=== PATIENT | female | born 1945 | race Caucasian/White ===

== ENCOUNTER → 2016-11-08 | Outpatient (CLI) | payer MEDICARE ==
--- NOTE | 2016-11-08 16:38 | RADIOLOGY REPORT PS360 ---
US THYROID HISTORY: ACQUIRED HYPOTHYROIDISM, ORDERING PHYSICIAN: Brendan Danielle MD PATIENT AGE: 71 years COMPARISON: None FINDINGS: The right lobe is 4.1 x 1.3 x 1.3 cm. No discrete nodules evident. There is homogeneous echogenicity. The left lobe is 3.5 x 0.7 x 1.4 cm with no obvious nodule and homogeneous echogenicity The isthmus is thickened at 6 mm. IMPRESSION: 1. Thickened isthmus of the thyroid otherwise negative. 2. No nodules identified
--- NOTE | 2016-11-12 10:04 | RADIOLOGY REPORT PS360 ---
DIG MAMM-DX UNI A/VWS-LT W/CAD, US BREAST-LT COMPLETE W/AXILLA COMPARISON: 10/31 and 09/15/2006 INDICATION: Follow-up abnormal mammogram ORDERING PHYSICIAN: Brendan Danielle MD PATIENT AGE: 71 years TECHNIQUE: Standard images are performed along with spot compression views and left breast ultrasound FINDINGS: Nodular opacity is once again noted involving the medial and inferior aspect of the left breast at 5 mm. This does not appear significantly changed. In addition, there is an asymmetric density in the deep and medial aspect of the left breast at nearly 8 mm. Left breast ultrasound: Hypoechoic 8 x 4 mm area 2:00 and may represent a small cyst with some enhanced through transmission of sound. There is a 6 mm hypoechoic area at 9:00 mid aspect may be due to small cyst. This has a probably benign appearance and may correspond to the deeper nodule noted on the mammogram.. A septated cyst is once again noted at 9:00 at 6 mm corresponding to the more anterior mammographic abnormality. Small nodes present in the axilla. IMPRESSION: Probably benign findings. There is a new nodular density deeper in the medial aspect of the right breast which is hypoechoic on ultrasound probably benign and a new probable complex cyst in the 2:00 region of the left breast. BI-RADS CATEGORY: 3_Probably Benign-Short Term F/U RECOMMENDED FOLLOWUP: Bilateral mammogram and left breast ultrasound follow-up is suggested in February 2017 (A letter has been sent to the patient regarding results of the study.)
== END ==
LOC: RAD 13:10
DX: R92.8 Other abnormal and inconclusive findings on diagnostic imaging of breast (principal); E03.9 Hypothyroidism, unspecified; R13.13 Dysphagia, pharyngeal phase
CPT/HCPCS: G0206-LT

== ENCOUNTER → 2017-03-01 | Outpatient (CLI) | payer MEDICARE ==
--- NOTE | 2017-03-03 19:31 | RADIOLOGY REPORT PS360 ---
US BREAST-LT COMPLETE W/AXILLA COMPARISON: 11/08/2016 INDICATION: Follow-up abnormal ultrasound ORDERING PHYSICIAN: Brendan Danielle MD PATIENT AGE: 72 years TECHNIQUE: Standard images FINDINGS: Complex 7 mm cyst at 2:00 unchanged, complex 5 mm cyst at 9:00 unchanged, 4 mm hypoechoic nodule at 9:00 near the nipple and may be due to small cyst. No suspicious nodules evident. IMPRESSION: No evidence of malignancy BI-RADS CATEGORY: 2_Benign RECOMMENDED FOLLOWUP: Routine screening mammogram (A letter has been sent to the patient regarding results of the study.)
--- NOTE | 2017-03-03 23:18 | RADIOLOGY REPORT PS360 ---
DIG MAMM-SCREEN ADA W/CAD CAD Screening ORDERING PHYSICIAN : Brendan Danielle MD PATIENT AGE: 72 years GENDER: Female COMPARISON: Previous mammograms: August 2006 and February 2016 INDICATION: Routine screening no hormones. No new complaints. Previous biopsy excisional biopsy left breast upper-outer quadrant periareolar region. Family history. Paternal aunt with breast cancer TECHNIQUE: Standard CC and MLO images were obtained. R2 CAD reviewed. FINDINGS: Moderate breast density. Mild asymmetry similar to prior studies. RIGHT BREAST: Near 10 mm round density at the o'clock 11 o'clock position right breast is been stable since 2006. Other small areas appear stable as well LEFT BREAST: Subtle scattered areas of minimal nodularity in the left breast in liver similar prior studies as well can be followed in one year. Area of mild asymmetric density at lateral left breast the view appears similar to last year, but would benefit from ongoing annual follow-up IMPRESSION: -------- No significant change. Moderately dense slightly inhomogeneous and asymmetric breast. No significant new areas concern . Bilateral follow-up in one year recommended BI-RADS CATEGORY: 2_Benign RECOMMENDED FOLLOWUP: 12M 12 MONTH FOLLOW-UP (A letter has been sent to the patient regarding results of the study.)
== END ==
LOC: RAD 12:04
DX: Z12.31 Encounter for screening mammogram for malignant neoplasm of breast (principal); R92.8 Other abnormal and inconclusive findings on diagnostic imaging of breast
CPT/HCPCS: G0202